=== PATIENT | male | born 1955 | race Caucasian/White ===

== ENCOUNTER 2016-08-13 17:42 | Emergency (ER) | payer BC ==
[~2016-08-13] VITALS: Ht 182.9 cm; Wt 111.5 kg
[2016-08-13] MEDS ORDERED: CIPRO500 MG PO (18:50)
[2016-08-13] MEDS ORDERED: FLAGYL500 MG PO (18:50)
[2016-08-13] MEDS ORDERED: PERCOCET 5/31 TABLET PO (18:51)
[2016-08-13 18:54] VITALS: BP 169/93
[2016-08-14] MEDS ORDERED: LISINOPRIL40 MG PO (20:34)
== END 2016-08-13 19:14 | disposition home or self-care (01) ==
LOC: EME 17:42
DX: K62.89 Other specified diseases of anus and rectum (principal); R23.4 Changes in skin texture; I10 Essential (primary) hypertension
CPT/HCPCS: 99281; 99284

== ENCOUNTER 2016-08-14 16:46 | Inpatient (IN) | payer BC ==
[~2016-08-14] VITALS: Ht 182.9 cm; Wt 110.7 kg
[~2016-08-14 16:46] MED LIST: CIPRO500 MG PO; FLAGYL500 MG PO; PERCOCET 5/31 TABLET PO
[2016-08-14 18:32] LABS: HEMATOCRIT 42.2 % (38.0-50.0); MCH 31.4 PG (29.0-34.0); MCHC 33.9 G/DL (30.0-36.0); MCV 92.5 FL (86-99); MEAN PLAT.VOLUME 10.3 uM^3 (9.0-12.4); PLATELET COUNT 198 K/uL (156-360); RBC DIS.WIDTH-CV 12.6 % (11.8-14.6); RBC DIS.WIDTH-SD 42.9 % (39-53); RED BLOOD COUNT 4.56 M/uL (4.00-5.50); WHITE BLOOD COUNT 16.3 K/uL (4.1-10.2)
[2016-08-14 18:43] LABS: CHLORIDE 98 mEq/L (99-109); POTASSIUM 3.9 mEq/L (3.7-5.4); SODIUM 135 mEq/L (136-147)
[2016-08-14 18:45] LABS: GLUCOSE 209 mg/dL (70-99)
[2016-08-14 18:46] LABS: ANION GAP 12 MEQ/L (2-14)
[2016-08-14 18:47] LABS: TOTAL BILIRUBIN 0.7 mg/dL (0.0-1.0)
[2016-08-14 18:49] LABS: ALKALINE PHOSPHATASE 82 IU/L (3-129); GFR ESTIMATE (CALCULATED) > 59 mL/min/
[2016-08-14 18:50] LABS: UREA NITROGEN (BUN) 12 mg/dL (9-23)
[2016-08-14] MEDS ORDERED: LISINOPRIL40 MG PO (20:34)
[2016-08-14 22:58] VITALS: BP 153/71
[2016-08-14 22:59] LABS: Estimated Average Glucose 174 mg/dL (70-123); HEMOGLOBIN A1c (GLYCOHEMOGLOB) 7.7 % HGB (Below 5.7)
[2016-08-15 04:47] VITALS: BP 148/77
[2016-08-15 07:28] LABS: ANION GAP 6 MEQ/L (2-14); CHLORIDE 100 MEQ/L (99-109); GFR ESTIMATE (CALCULATED) > 59 mL/min/; GLUCOSE 219 mg/dL (70-99); POTASSIUM 3.9 MEQ/L (3.7-5.4); SAMPLE HEMOLYSIS CHECK 0; SAMPLE ICTERIC CHECK 0; SAMPLE LIPEMIA CHECK 0; SODIUM 135 MEQ/L (136-147); UREA NITROGEN (BUN) 10 mg/dL (9-23)
[2016-08-15 07:34] LABS: MCH 31.3 PG (29.0-34.0); MCHC 33.3 G/DL (30.0-36.0); MEAN PLAT.VOLUME 10.5 uM^3 (9.0-12.4); PLATELET COUNT 177 K/uL (156-360); RBC DIS.WIDTH-CV 12.8 % (11.8-14.6); RBC DIS.WIDTH-SD 43.8 % (39-53); RED BLOOD COUNT 3.83 M/uL (4.00-5.50); WHITE BLOOD COUNT 15.2 K/uL (4.1-10.2)
[2016-08-15 08:15] VITALS: BP 139/77
[2016-08-15 12:00] VITALS: BP 114/63
[2016-08-15 16:00] VITALS: BP 139/74
[2016-08-15 19:21] VITALS: BP 135/61
[2016-08-15 23:22] VITALS: BP 146/74
[2016-08-16 06:46] LABS: POINT-OF-CARE METER ID UU13113725
[2016-08-16 06:57] LABS: MCH 31.4 PG (29.0-34.0); MCHC 33.1 G/DL (30.0-36.0); MEAN PLAT.VOLUME 10.6 uM^3 (9.0-12.4); PLATELET COUNT 194 K/uL (156-360); RBC DIS.WIDTH-CV 12.9 % (11.8-14.6); RBC DIS.WIDTH-SD 45.1 % (39-53); RED BLOOD COUNT 3.79 M/uL (4.00-5.50)
[2016-08-16 07:12] VITALS: BP 147/76
[2016-08-16 07:21] LABS: WHITE BLOOD COUNT 8.6 K/uL (4.1-10.2)
[2016-08-16 07:25] LABS: ANION GAP 8 MEQ/L (2-14); CHLORIDE 102 MEQ/L (99-109); GFR ESTIMATE (CALCULATED) > 59 mL/min/; GLUCOSE 158 mg/dL (70-99); SAMPLE HEMOLYSIS CHECK 0; SAMPLE ICTERIC CHECK 0; SAMPLE LIPEMIA CHECK 0; SODIUM 140 MEQ/L (136-147); UREA NITROGEN (BUN) 13 mg/dL (9-23)
[2016-08-16] MEDS ORDERED: OXYCODONE HCL5 MG PO (11:12)
[2016-08-16] MEDS ORDERED: NUPERCAINAL,28.35 GM TP (11:12)
[2016-08-16] MEDS ORDERED: SENNA PLUS TAB1 EACH PO (11:12)
[2016-08-16] MEDS ORDERED: AUGMENTIN875 MG PO (11:12)
== END 2016-08-16 13:47 | disposition home or self-care (01) | DRG 331 ==
LOC: EME 16:46 → 5EAST 21:12 → EDOF 21:12 → 5EAST 22:50
PROVIDERS: Hospitalist; Internal Medicine; Nurse Practitioner Family; Surgery
DX: K61.1 Rectal abscess (principal); E78.1 Pure hyperglyceridemia; D72.829 Elevated white blood cell count, unspecified; E66.9 Obesity, unspecified; I10 Essential (primary) hypertension; E11.9 Type 2 diabetes mellitus without complications
CPT/HCPCS: 72193; 80048; 80053; 82948; 83036; 85027; 87070; 87075; 87076; 87185; 87205; 93005; 94760; 94799; 99281; 99284; 99285; J0295; J0330; J1100; J1170; J1650; J1815; J2270; J2405; J3010; J7030; J7050; J7120